=== PATIENT | male | born 1995 | race Caucasian/White ===

== ENCOUNTER 2023-07-12 14:15 | Outpatient (RCR) | payer MEDICARE, SELFPAY ==
[2023-06-21 13:08] VITALS: BP 179/111; PULSE 102; RESP 20; TEMP 36.5; BMI 62.3
--- NOTE | 2023-06-22 13:38 | PCM.WC.HP ---
History of Present Illness Date of Service: 06/21/23 Chief Complaint: LLE skin breakdown/cellulitis History of Wound: Patient is a 27 year old male who does have a diagnosis of cognitive delay, his mother and sister have accompanied him to his appointment today. He is referred by PCP. In March, patient had an abrasion on his LLE which became infected. He was started on antibiotics and it had begun to improve for some time. Then he had a bug bite in the same area and the infection all of sudden started to worsen. On 05/30/23 he presented to the ER with erythema extending from distal L kingsley to mid thigh and he was admitted for 3 days for IV antibiotics. He was discharged with 2 weeks of PO amoxicillin and doxycycline. He was seen by his PCP for persistent ulcerated area on the L kingsley. He recently finished his PO antibiotics. He and his mother report the redness has significantly improved though there is some persistent redness at the distal medial thigh and mid-kingsley. There is a small, very superficial ulceration about mid-kingsley. He reports the pain is resolved and the swelling seems to be slowly improving. Prior to this, he had not been wearing any compression. He has never had anything like this happen before. He was recently diagnosed with hypertension and started on lisinopril. He uses chewing tobacco, does not smoke. No history of diabetes. His medical history is otherwise unremarkable. [facility] Medical History (Updated 06/22/23 @ 16:42 by CHARLENE Rodriguez) Anxiety Bilateral leg edema Bilateral lower leg cellulitis Essential (primary) hypertension GERD (gastroesophageal reflux disease) Irritable Mild mental slowing Mild persistent asthma in adult without complication Obesity, morbid (more than 100 lbs over ideal weight or BMI > 40) Tachycardia with hypertension Home Medications albuterol sulfate 90 mcg/actuation aerosol inhaler (Ventolin HFA) 1 inh inhalation Q4H 06/15/23 [History Last Taken Unknown] cetirizine 10 mg tablet 10 mg PO HS 06/15/23 [History Last Taken Unknown] famotidine 20 mg tablet 20 mg PO DAILY 06/15/23 [History Last Taken Unknown] furosemide 40 mg tablet 40 mg PO DAILY 06/15/23 [History Last Taken Unknown] lisinopril 30 mg tablet 30 mg PO DAILY 06/15/23 [History Last Taken Unknown] metoprolol succinate 25 mg tablet,extended release 24 hr 25 mg PO DAILY 06/15/23 [History Last Taken Unknown] Allergy/AdvReac Type Severity Reaction Status Date / Time Animal Dander Allergy Intermediate Unknown Uncoded 06/15/23 08:25 Mold Spores Allergy Intermediate Unknown Uncoded 06/15/23 08:25 Family History (Updated 06/15/23 @ 08:38 by Crystal Eagle RN) Mother Asthma Grandfather Cancer Brother Diabetes Grandmother Diabetes Heart disease Hypertension Father Kidney disease Surgical History (Updated 06/15/23 @ 08:35 by Crystal Eagle RN) Hx of tonsillectomy Social History (Updated 06/15/23 @ 08:30 by Crystal Eagle RN) Smoking Status: Never smoker Smokeless tobacco user: chewing tobacco alcohol intake: never substance use type: does not use caffeine: Yes Type: tea Vital Signs Vital Signs Vital Signs: Weight Weight: 422 lb Body Mass Index (BMI) 62.3 Physical Exam Const alert, oriented x3 and no apparent distress General Appearance: cooperative HEENT normocephalic, head/scalp atraumatic, hearing grossly normal bilaterally, external ears normal and external nose normal Eyes EOMs intact bilaterally General Eye: normal appearance of both eyes Neck General: normal visual inspection and trachea midline Resp normal respiratory effort, normal air movement, no retractions and no use of accessory muscles Effort and Inspection: able to speak in complete sentences; Negative for labored, grunting or stridor Cardio regular rate and regular rhythm Extremity Extremity Narrative: Left lower extremity edema 1-2+. Skin Wounds: wounds noted Wound Narrative: There is some remaining erythema at the medial distal thigh and at mid-kingsley on the LLE. There is no associated warmth, tenderness, drainage, fluctuance, induration. There is a small, superficial ulcerated area within the erythematous area on the L mid-kingsley. There is no significant drainge from this area. Neuro oriented x3, CN's II-XII intact bilaterally, moves all extremities, no focal motor deficits and no sensory deficits noted Psych Appearance: grossly normal Attitude: calm and engaged Activity / Motor Behavior: appropriate eye contact Speech: normal speech Mood & Affect: euthymic mood Debridement Note Debridement Note No debridement was completed: No debridement was completed today Post-Debridement Measurements and Additional Note: Post-Debridement Measurements/Treatment RIVERA - Nurse 1 - General Ulcer Assessment Start: 06/21/23 13:08 Freq: Status: Active Protocol: JOSHEXT Activity Type Activity Date Activity User E-sign Co-sign Detail Recorded Client Recorded Date Recorded By Document 06/21/23 13:08 [id number] 06/21/23 13:20 06/21/23 13:08 - Today's Visit Information Type of service Initial Visit Arrival Mode Ambulatory Accompanied by Mother and sister Patient Identification Verified (Name & Yes ) Height and Weight Height 5 ft 9 in Weight 422 lb Weight in Pounds 422.0 lbs Body Mass Index (BMI) 62.3 BMI Classification Obese BSA - Bita 2.84 Vital Signs Temperature (97.8 F-99.1 F) 97.7 F L Temperature Source Temporal Pulse Rate (60-100) 102 H Pulse Location Monitor Respiratory Rate (12-18) 20 H Respiratory rate source Observation Oxygen Delivery Method Room Air Blood Pressure (90/60-120/80) 179/111 H Blood Pressure Mean 133 Source Monitor Position Sitting Blood Pressure Location Left Arm History Since Last Visit- (Skip if this is Patient's initial visit) Left Footwear Regular Shoe Right Footwear Regular Shoe Pain Scale: 0-10 Numeric Is Patient Pain Free? Yes Lower Extremity Assessment/ Foot Assessment/ Toe Nail Assessment Right -Popliteal Doppler Multiphasic -Posterior Tibial Doppler Multiphasic -Dorsalis Pedis Doppler Multiphasic -Extremity Color Normal -Hair Growth on Legs Yes -Hair Growth on Toes Yes -Temperature of Extremity Warm -Capillary Refill Less than 3 Seconds Left -Popliteal Doppler Monophasic -Posterior Tibial Doppler Monophasic -Dorsalis Pedis Doppler Monophasic -Extremity Color Red,Normal -Hair Growth on Legs Yes -Hair Growth on Toes Yes -Temperature of Extremity Warm -Capillary Refill Less than 3 Seconds -Foot Assessment Not Assessed Communication Assessment Preferred language Bahamian Able to Read Yes Able to Write Yes Communication Tools None Caregiver Communication Skills No Impairment Impairment Right Hearing Abillity Normal Left Hearing Abillity Normal Visual Assistive Devices None Teaching Assessment Preferences Verbal,Written, Demonstration Barriers to Learning None Readiness To Learn Excellent Willingness to Engage in Self Management High Activies Readiness to Engage in Self Management High Activities Anxiety Level Calm Cooperation Cooperative Perception Coherent Interest in Health Problem Asks Questions Education Importance Acknowledges Need Does Patient Smoke tobacco or other Yes substances Is Patient Diabetic No Functional Assessment Recent Decline in Ability to Perform Denies Any Declines Culture/Islam/Maintenance Journeyman Cultural/Islam Needs that may affect No Treatment Plan Would you allow our hospital national park tour guide to No meet you for the purpose of spiritual/ emotional support? Teaching: Wound Center Welcome to the Wound Care Center Bah[place]ian WC - Nurse 1 - General Ulcer Measurement Start: 06/21/23 13:08 Freq: Status: Active Protocol: Activity Type Activity Date Activity User E-sign Co-sign Detail Recorded Client Recorded Date Recorded By Document 06/21/23 13:08 [id number] 06/21/23 13:20 KW 06/21/23 13:08 Wound Center Nurse 1 #1: LLE/ KINGSLEY -Current Size (cm) - Length 0.1 -Current Size (cm) - Width 0.1 -Current Size (cm) - Depth 0.1 -Total Square Cm 0.01 -Texture (Francesca-wound Skin Appearance) Assessed -Moisture (Francesca-wound Skin Appearance) Assessed -Color (Francesca-wound Skin Appearance) Assessed -Temperature (Francesca-wound Skin No Abnormality Appearance) (Pt Warm) -Ulcer Cleansing Soap and Water -Foul Odor after Cleansing No -Anesthetic Used 5% Lidocaine Gel Right Calf (cm) 54.7 Right Ankle (cm) 30.8 Left Calf (cm) 62.6 Left Ankle (cm) 37 WC - Nurse 2 - General Ulcer CM Notes Start: 06/21/23 13:08 Freq: Status: Active Protocol: Activity Type Activity Date Activity User E-sign Co-sign Detail Recorded Client Recorded Date Recorded By Document 06/21/23 13:59 PL [id number] 06/21/23 14:05 PL 06/21/23 13:59 Wound Center Nurse 2 #1: LLE/ KINGSLEY -Time 13:30 -Correct Patient Yes -Correct Side, Site, Position Yes -Correct Procedure Yes -Procedure Performed No -Post Debridement (cm) - Length 1.0 -Post Debridement (cm) - Width 0.5 -Post Debridement (cm) - Depth 0.1 -Total Square (Post) (cm) 0.50 -Tunneling No -Undermining/Tunneling No -Circular Undermining No -Ulcer Cleansing Rinsed/ Irrigated with Saline -Foul Odor after Cleansing No -Bioengineered Tissue No -Bleeding Controlled with Pressure -Treatment Response Procedure Tolerated Well Pain Scale: 0-10 Numeric Is Patient Pain Free? Yes WC - Nurse 3 - General Ulcer D/C NN Start: 06/21/23 13:08 Freq: Status: Active Protocol: Activity Type Activity Date Activity User E-sign Co-sign Detail Recorded Client Recorded Date Recorded By Document 06/21/23 13:49 [facility] [id number] 06/21/23 13:50 [facility] 06/21/23 13:49 Wound Care Center Nurse 3 #1: LLE/ KINGSLEY -Ulcer Cleansing Rinsed/ Irrigated with Saline -Foul Odor after Cleansing No -Other Dressing UNNA BOOT PER KW TYPE COPY EXAMINER Left -Multi-Layered Wrap Application Unna Boot - Left ($) Treatment Response Procedure Tolerated Well Pain Scale: 0-10 Numeric Is Patient Pain Free? Yes WC - Visit Discharge Discharge Condition Stable Ambulatory Status Ambulatory Transportation Private Auto Accompanied by MOM AND SISTER Charges/Coding Visit Charges Office Visits / Consults: 04131 OV L3 New Assessment/Plan Assessment/Plan (1) Bilateral leg edema: CODE(S): R60.0 - Localized edema (2) Chronic ulcer of left leg, limited to breakdown of skin: CODE(S): L97.921 - Non-pressure chronic ulcer of unspecified part of left lower leg limited to breakdown of skin PLAN: Plan Did use skin marker to trace the areas of erythema. He just finished two weeks of oral antibiotics and is without any other signs/symptoms of infection at this time. He and his family are instructed to contact the wound center or proceed to the ER if the redness spreads or he develops pain/fevers/chills and they acknowledged understanding. Will apply an Unna boot to the L leg for both treatment of the ulceration as well as compression. He was instructed to keep this dressing clean and dry, it will remain in place all week. He was instructed to elevate his legs whenever resting and to avoid prolonged idle sitting or standing. Return to clinic in 1 week.
[2023-07-12 14:58] VITALS: BP 138/84; PULSE 117; RESP 18; BMI 62.3
[2023-07-12 16:49] LABS: Absolute Lymphocyte Count 1.24 X10^3/uL (0.83-4.51); Absolute Neutrophil Count 9.2 X10^3/uL (2.0-7.7); Basophil# 0.02 X10^3/uL; Basophil% 0.2 % (0-1); Eosinophil# 0.04 X10^3/uL; Eosinophils% 0.4 % (0-5); Hematocrit 40.3 % (40-54); Hemoglobin 12.3 g/dL (13.0-16.5); Lymphocyte # 1.24 X10^3/ul (0.83-4.51); Lymphocyte % 10.9 % (19-41); Mean Corp Hgb Conc 30.5 g/dL (32-36); Mean Corpuscular Hgb 27.6 pg (27.0-32.0); Mean Corpuscular Volume 90.4 fL (80-94); Mean Platelet Vol. 12.4 fl (6.2-12.0); Monocyte# 0.81 X10^3/uL; Monocyte% 7.1 % (0-10); NRBC Flagged by Analyzer 0 % (0-5); Neutrophil # 9.17 X10^3/uL (2.7-7.7); Platelet Count 157 K/mm3 (150-450); RBC Distribution Width CV 14.6 % (11.6-14.6); Red Blood Count 4.46 M/mm3 (4.6-6.2); White Blood Count 11.3 K/mm3 (4.4-11.0)
[2023-07-12 17:06] LABS: Anion Gap 5 (5-15); BUN 15 mg/dL (7-18); BUN/Creat Ratio 13.4 RATIO (10-20); Calcium,Total 8.6 mg/dL (8.5-10.1); Chloride 102 mmol/L (98-107); Creatinine, Serum 1.12 mg/dL (0.70-1.30); EST Glomerular Filtration Rate 83 mL/min (>60); Est Glom Filt Rate - Afr Amer 101 mL/min (>60); Estimated Creatinine Clearance 99.07 ml/min; Glucose 112 mg/dL (74-106); Potassium 3.9 mmol/L (3.5-5.1); Sodium Level 136 mmol/L (136-145)
--- NOTE | 2023-07-13 12:17 | PCM.WC.PN ---
History of Present Illness Date of Service: 07/12/23 Chief Complaint: LLE skin breakdown/cellulitis History of Wound: Patient is a 27 year old male who does have a diagnosis of cognitive delay, his mother and sister have accompanied him to his appointment today. He is referred by PCP. In March, patient had an abrasion on his LLE which became infected. He was started on antibiotics and it had begun to improve for some time. Then he had a bug bite in the same area and the infection all of sudden started to worsen. On 05/30/23 he presented to the ER with erythema extending from distal L kingsley to mid thigh and he was admitted for 3 days for IV antibiotics. He was discharged with 2 weeks of PO amoxicillin and doxycycline. He was seen by his PCP for persistent ulcerated area on the L kingsley. He recently finished his PO antibiotics. He and his mother report the redness has significantly improved though there is some persistent redness at the distal medial thigh and mid-kingsley. There is a small, very superficial ulceration about mid-kingsley. He reports the pain is resolved and the swelling seems to be slowly improving. Prior to this, he had not been wearing any compression. He has never had anything like this happen before. He was recently diagnosed with hypertension and started on lisinopril. He uses chewing tobacco, does not smoke. No history of diabetes. His medical history is otherwise unremarkable. Subjective Subjective Patient missed last appointment scheduled 2 weeks ago. He returns today with LLE improved following Unna boot but now with concerns of cellulitis in his RLE. He is accompanied to his visit by his mother who helps to supplement history. He reports that he got bit by a mosquito several days ago and since then has had increasing redness, pain, and swelling in his right lower leg. He denies any N/V, F/C. He does not have any open wounds. Objective Data Objective Data Vital Signs: Vital Signs Temp Pulse Resp BP O2 Del Method 97.7 F L 117 H 18 138/84 H Room Air 06/21/23 13:08 07/12/23 14:58 07/12/23 14:58 07/12/23 14:58 07/12/23 14:58 Oxygen Delivery Method Room Air Weight: 422 lb Body Mass Index (BMI) 62.3 Lab / Micro Data 07/12/23 16:15 07/12/23 16:15 Labs: Laboratory Results - last 24 hr 07/12/23 16:15: WBC 11.3 H, RBC 4.46 L, Hgb 12.3 L, Hct 40.3, MCV 90.4, MCH 27.6, MCHC 30.5 L, RDW Std Deviation 49.0 H, RDW Coeff of Roshan 14.6, Plt Count 157, MPV 12.4 H, Immature Gran % (Auto) 0.400, Neut % (Auto) 81.0 H, Lymph % (Auto) 10.9 L, Heard % (Auto) 7.1, Eos % (Auto) 0.4, Baso % (Auto) 0.2, Absolute Neuts (auto) 9.2 H, Absolute Lymphs (auto) 1.24, Nucleated RBC % 0, Sodium 136, Potassium 3.9, Chloride 102, Carbon Dioxide 29.0, Anion Gap 5, BUN 15, Creatinine 1.12, Estim Creat Clear Calc 99.07, Est GFR (MDRD) Af Amer 101, Est GFR (MDRD) Non-Af 83, BUN/Creatinine Ratio 13.4, Glucose 112 H, Calcium 8.6 Charges/Coding Visit Charges Office Visits / Consults: [id number] OV L3 Est Physical Exam Const alert, oriented x3 and no apparent distress General Appearance: cooperative HEENT normocephalic, head/scalp atraumatic, hearing grossly normal bilaterally, external ears normal and external nose normal Eyes EOMs intact bilaterally General Eye: normal appearance of both eyes Neck General: normal visual inspection and trachea midline Resp normal respiratory effort, normal air movement, no retractions and no use of accessory muscles Effort and Inspection: able to speak in complete sentences; Negative for labored, grunting or stridor Cardio regular rate and regular rhythm Extremity Extremity Narrative: Right lower extremity edema 1-2+ Skin Wounds: wounds noted Wound Narrative: There is some remaining erythema at the medial distal thigh and at mid-kingsley on the LLE but does appear resource teacher and improved from initial visit. There is no associated warmth, tenderness, drainage, fluctuance, induration. There is an area of increased erythema, warmth, and tenderness to palpation on his anterior R kingsley. The redness does not extend onto his foot and there is no streaking proximally up the leg. There is no significant drainage, no focal swelling or fluctuance, and no visible wound. Neuro oriented x3, CN's II-XII intact bilaterally, moves all extremities, no focal motor deficits and no sensory deficits noted Psych Appearance: grossly normal Attitude: calm and engaged Activity / Motor Behavior: appropriate eye contact Speech: normal speech Mood & Affect: euthymic mood Debridement Note Debridement Note No debridement was completed: No debridement was completed today Post-Debridement Measurements and Additional Note: Post-Debridement Measurements/Treatment WC - Nurse 1 - General Ulcer Assessment Start: 06/21/23 13:08 Freq: Status: Active Protocol: HEENA Activity Type Activity Date Activity User E-sign Co-sign Detail Recorded Client Recorded Date Recorded By Document 06/21/23 13:08 KW [id number] 06/21/23 13:20 KW Document 07/12/23 14:58 KW Desktop 07/12/23 15:03 KW 06/21/23 07/12/23 13:08 14:58 - Today's Visit Information Type of service Initial Visit Follow-up Visit (Physician/GREASE PACKER ) Arrival Mode Ambulatory Ambulatory Accompanied by Mother and MOM sister Patient Identification Verified (Name & Yes Yes ) Height and Weight Height 5 ft 9 in Weight 422 lb Weight in Pounds 422.0 lbs Body Mass Index (BMI) 62.3 62.3 BMI Classification Obese Obese BSA - Bita 2.84 Vital Signs Temperature (97.8 F-99.1 F) 97.7 F L Temperature Source Temporal Pulse Rate (60-100) 102 H 117 H Pulse Location Monitor Monitor Respiratory Rate (12-18) 20 H 18 Respiratory rate source Observation Observation Oxygen Delivery Method Room Air Room Air Blood Pressure (90/60-120/80) 179/111 H 138/84 H Blood Pressure Mean (mm Hg) 133 102 Source Monitor Monitor Position Sitting Semi-Fowlers Blood Pressure Location Left Arm Left Arm History Since Last Visit- (Skip if this is Patient's initial visit) Have you changed medications since your Yes last visit? Any new allergies or adverse reactions No Had a fall/change in ADL's that may No increase risk of falls Signs or symptoms of abuse and/or No neglect since last visit Have you been in the hospital since your No last visit? Has dressing in place as prescribed No Has compression in place as prescribed No Has offloadiing in place as prescribed No Experienced any changes in pain level or No management Left Footwear Regular Shoe Regular Shoe Right Footwear Regular Shoe Regular Shoe Pain Scale: 0-10 Numeric Is Patient Pain Free? Yes Yes Lower Extremity Assessment/ Foot Assessment/ Toe Nail Assessment Right -Popliteal Doppler Multiphasic -Posterior Tibial Doppler Multiphasic -Dorsalis Pedis Doppler Multiphasic -Extremity Color Normal -Hair Growth on Legs Yes -Hair Growth on Toes Yes -Temperature of Extremity Warm -Capillary Refill Less than 3 Seconds Left -Popliteal Doppler Monophasic -Posterior Tibial Doppler Monophasic -Dorsalis Pedis Doppler Monophasic -Extremity Color Red,Normal -Hair Growth on Legs Yes -Hair Growth on Toes Yes -Temperature of Extremity Warm -Capillary Refill Less than 3 Seconds -Foot Assessment Not Assessed Communication Assessment Preferred language Armenian Able to Read Yes Able to Write Yes Communication Tools None Caregiver Communication Skills No Impairment Impairment Right Hearing Abillity Normal Left Hearing Abillity Normal Visual Assistive Devices None Teaching Assessment Preferences Verbal,Written, Demonstration Barriers to Learning None Readiness To Learn Excellent Willingness to Engage in Self Management High Activies Readiness to Engage in Self Management High Activities Anxiety Level Calm Cooperation Cooperative Perception Coherent Interest in Health Problem Asks Questions Education Importance Acknowledges Need Does Patient Smoke tobacco or other Yes substances Is Patient Diabetic No Functional Assessment Recent Decline in Ability to Perform Denies Any Declines Culture/Hinduism/Manufacturing Electrician Cultural/Hinduism Needs that may affect No Treatment Plan Would you allow our hospital unattended ground sensor specialist to No meet you for the purpose of spiritual/ emotional support? Teaching: Wound Center Welcome to the Wound Care Center English ST[place] - Nurse 1 - General Ulcer Measurement Start: 06/21/23 13:08 Freq: Status: Active Protocol: Activity Type Activity Date Activity User E-sign Co-sign Detail Recorded Client Recorded Date Recorded By Document 06/21/23 13:08 KW [id number] 06/21/23 13:20 KW Document 07/12/23 14:58 KW Desktop 07/12/23 15:03 KW 06/21/23 07/12/23 13:08 14:58 Wound Center Nurse 1 #2 RLE -Current Size (cm) - Length 0.1 -Current Size (cm) - Width 0.1 -Current Size (cm) - Depth 0.1 -Total Square Cm 0.01 -Texture (Francesca-wound Skin Appearance) Localized Edema -Color (Francesca-wound Skin Appearance) Erythema -Ulcer Cleansing Soap and Water #1: LLE/ KINGSLEY -Current Size (cm) - Length 0.1 0.1 -Current Size (cm) - Width 0.1 0.1 -Current Size (cm) - Depth 0.1 0.1 -Total Square Cm 0.01 0.01 -Texture (Francesca-wound Skin Appearance) Assessed Localized Edema -Moisture (Francesca-wound Skin Appearance) Assessed -Color (Francesca-wound Skin Appearance) Assessed Erythema -Temperature (Francesca-wound Skin No Abnormality Appearance) (Pt Warm) -Ulcer Cleansing Soap and Water Soap and Water -Foul Odor after Cleansing No -Anesthetic Used 5% Lidocaine Gel Right Calf (cm) 54.7 56.5 Right Ankle (cm) 30.8 32.5 Left Calf (cm) 62.6 57.5 Left Ankle (cm) 37 35 WC - Nurse 2 - General Ulcer CM Notes Start: 06/21/23 13:08 Freq: Status: Active Protocol: Activity Type Activity Date Activity User E-sign Co-sign Detail Recorded Client Recorded Date Recorded By Document 06/21/23 13:59 [id number] 06/21/23 14:05 Document 07/12/23 16:39 [id number] 07/12/23 16:40 06/21/23 07/12/23 13:59 16:39 Wound Center Nurse 2 #2 RLE -Time 15:30 -Correct Patient Yes -Correct Side, Site, Position Yes -Correct Procedure Yes -Procedure Performed No #1: LLE/ KINGSLEY -Time 13:30 -Correct Patient Yes -Correct Side, Site, Position Yes -Correct Procedure Yes -Procedure Performed No -Post Debridement (cm) - Length 1.0 -Post Debridement (cm) - Width 0.5 -Post Debridement (cm) - Depth 0.1 -Total Square (Post) (cm) 0.50 -Tunneling No -Undermining/Tunneling No -Circular Undermining No -Ulcer Cleansing Rinsed/ Irrigated with Saline -Foul Odor after Cleansing No -Bioengineered Tissue No -Bleeding Controlled with Pressure -Treatment Response Procedure Tolerated Well Pain Scale: 0-10 Numeric Is Patient Pain Free? Yes Yes WC - Nurse 3 - General Ulcer D/C NN Start: 06/21/23 13:08 Freq: Status: Active Protocol: Activity Type Activity Date Activity User E-sign Co-sign Detail Recorded Client Recorded Date Recorded By Document 06/21/23 13:49 [facility] [id number] 06/21/23 13:50 [facility] Document 07/12/23 15:45 DL Desktop 07/12/23 15:45 DL 06/21/23 07/12/23 13:49 15:45 Wound Care Center Nurse 3 #1: LLE/ KINGSLEY -Ulcer Cleansing Rinsed/ Irrigated with Saline -Foul Odor after Cleansing No -Other Dressing UNNA BOOT PER KW LEGAL PARAPROFESSIONAL renetta -Tubular Bandage Single Layer -Size of Tubigrip Used Size F -Size F ($) 1 Left -Multi-Layered Wrap Application Unna Boot - Left ($) Treatment Response Procedure Procedure Tolerated Well Tolerated Well Pain Scale: 0-10 Numeric Is Patient Pain Free? Yes Yes WC - Visit Discharge Discharge Condition Stable Stable Ambulatory Status Ambulatory Ambulatory Transportation Private Auto Private Auto Accompanied by MOM AND SISTER Assessment/Plan Assessment/Plan (1) Bilateral leg edema: CODE(S): R60.0 - Localized edema (2) Cellulitis of right leg: CODE(S): L03.115 - Cellulitis of right lower limb PLAN: Plan Does appear to have RLE cellulitis. Will prescribe the antibiotic regimen he was on previously for his LLE cellulitis: Amoxicillin 875mg PO BID x 7 days and Doxycycline 100mg PO BID x 14 days. He is also advised to take a daily probiotic. Did obtain a BMP and CBC. His white count was very slightly elevated, otherwise these labs were essentially normal. Will also apply Tubigrips to the lower legs to help manage edema. He is instructed to wear the tubigrips during the day, as tolerated, but to remove at night before bed. He is instructed to cleanse his legs daily with gentle antibacterial soap and water, pat to dry. He was instructed to proceed to the ER should he develop nausea, vomiting, fevers, chills, increasing/spreading redness. Return to clinic in 1 week or sooner as needed.
== END 2023-07-14 23:59 | disposition home or self-care (01) ==
LOC: WC 14:15
PROVIDERS: PCP Nurse Practitioner Family; Referring Provider Nurse Practitioner Family; Visit Provider Physician Assistant
DX: L97.921 Non-pressure chronic ulcer of unspecified part of left lower leg limited to breakdown of skin (principal); M79.661 Pain in right lower leg; I10 Essential (primary) hypertension; R60.0 Localized edema; L03.115 Cellulitis of right lower limb
CPT/HCPCS: 29580; 36415; 80048; 85025; 99213; G0463

== ENCOUNTER 2025-06-12 09:00 | Outpatient (RCR) | payer MEDICARE, SELFPAY ==
[2025-06-09 13:19] VITALS: BP 140/91; PULSE 116; RESP 15; TEMP 35.7; BMI 63.5
--- NOTE | 2025-06-10 13:43 | WC ---
PHOTO-LLE 06/09/25
--- NOTE | 2025-06-11 14:50 | PCM.WC.HP ---
History of Present Illness Date of Service: 06/09/25 Chief Complaint: Left lower extremity venous stasis ulceration with venous stasis dermatitis History of Wound: This is a 29-year-old morbidly obese male who presented with a left lower extremity venous stasis ulceration and venous stasis dermatitis. The patient has previously been treated at the [facility] wound [facility] for similar symptoms and manifestations approximately 2 years ago. The patient is mildly cognitively impaired. The patient's BMI is 63.5. He has been treated for recurrent episodes of cellulitis in his left lower extremity, and has recently received 2 courses of oral cephalexin. Bactroban ointment has been used topically. Exudative drainage has been present until recently. The patient is currently on Lasix, prescribed by his primary care physician. The patient suffers from chronic swelling and edema in his lower extremities bilaterally. He claims to sleep on a flat mattress at night. However, he is not very active, spending large portions of each day sitting in idle fashion. He lives with his parents. Due to dietary modifications, the patient has recently lost 70 pounds. The patient suffers from hypertension, gastroesophageal reflux disease, and asthma. He does not smoke tobacco products, but he does chew. The patient is not diabetic. [facility] Medical History Venous stasis ulcer Hyperpigmentation Lipodermatosclerosis of left lower extremity Venous stasis ulcer of ankle with fat layer exposed without varicose veins Venous stasis dermatitis of left lower extremity Localized swelling of both lower legs Morbid obesity with BMI of 60.0-69.9, adult Cellulitis of right leg Chronic ulcer of left leg, limited to breakdown of skin Irritable Obesity, morbid (more than 100 lbs over ideal weight or BMI > 40) Anxiety Mild mental slowing Essential (primary) hypertension Mild persistent asthma in adult without complication GERD (gastroesophageal reflux disease) Bilateral lower leg cellulitis Tachycardia with hypertension Bilateral leg edema Home Medications Medication Instructions Recorded Last Taken Type cetirizine 10 mg tablet 10 mg PO HS 06/15/23 Unknown History furosemide 40 mg tablet 40 mg PO DAILY 06/15/23 Unknown History lisinopril 30 mg tablet 30 mg PO DAILY 06/15/23 Unknown History albuterol sulfate 90 mcg/actuation 1 inh inhalation Q4-6H PRN 01/18/24 Unknown History aerosol inhaler (Ventolin HFA) shortness of breath or wheezing metoprolol succinate 25 mg 50 mg PO DAILY 01/18/24 Unknown History tablet,extended release 24 hr Allergy/AdvReac Type Severity Reaction Status Date / Time Animal Dander Allergy Intermediate Unknown Uncoded 01/18/24 12:08 Mold Spores Allergy Intermediate Unknown Uncoded 01/18/24 12:08 Family History Mother Asthma Grandfather Cancer Brother Diabetes Grandmother Diabetes Heart disease Hypertension Father Kidney disease Surgical History Hx of tonsillectomy Social History Smoking Status: Never smoker Smokeless tobacco user: chewing tobacco alcohol intake: never substance use type: does not use caffeine: Yes Type: tea Vital Signs Vital Signs Vital Signs: Weight Weight: 430 lb Body Mass Index (BMI) 63.5 Physical Exam Const alert, no apparent distress and well nourished Constitutional Narrative: The patient is morbidly obese. His BMI is 63.5. The patient is interactive, though appears somewhat cognitively impaired. General Appearance: cooperative, comfortable and well developed Orientation / Consciousness: awake Exam Limitations: no limitations HEENT normocephalic and head/scalp atraumatic Head and Scalp: normal to inspection, normocephalic and atraumatic Face and Sinus: normal facial exam Nose: external nose normal External Ear: external ears normal Eyes EOMs intact bilaterally General Eye: normal appearance of both eyes Neck full ROM General: normal visual inspection Resp normal respiratory effort, normal air movement, no retractions and no use of accessory muscles Effort and Inspection: able to speak in complete sentences Extremity no calf tenderness General Extremity: Negative for clubbing or cyanosis Skin Wound Narrative: Severe swelling and edema are noted in the patient's lower extremities bilaterally. A venous ulceration is noted on the left lateral calf, surrounded by an area of scaly, venous stasis dermatitis. Areas of sloughing epidermis are noted surrounding the venous stasis ulceration. Hyperpigmentation is also noted in the left gaiter area, as well as lipodermatosclerosis. No large varicosities are noted. No drainage is noted. There is no sign of infection or cellulitis. The venous stasis ulceration is partial-thickness, and margins are well beveled. Dimensions are documented elsewhere. Neuro oriented x3, CN's II-XII intact bilaterally, moves all extremities and no focal motor deficits Sensorium / Orientation: awake Psych Appearance: grossly normal and appropriate Attitude: calm Activity / Motor Behavior: appropriate eye contact Speech: normal speech Mood & Affect: euthymic mood Attention / Concentration: attention grossly intact Debridement Note Debridement Note Wound debrided: Venous stasis ulceration of the left lateral calf Laterality: Left Type of Debridement: Selective debridement Anesthesia Used: 5% Lidocaine Gel Depth: Down to and including healthy tissue Percentage of wound debrided: 100 Instrument Used: 5mm curette Tissue Removed: Devitalized tissue and sloughing epidermis Severity: Limited To Skin Breakdown Amount of bleeding with debridement: Mild Bleeding Controlled with: Compression and gauze Patient tolerated procedure: Patient tolerated procedure well Post-Debridement Measurements and Additional Note: Post-Debridement Measurements/Treatment - Nurse 1 - General Ulcer Assessment Start: 06/09/25 13:19 Freq: Status: Active Protocol: HEENA Activity Type Activity Date Activity User E-sign Co-sign Detail Recorded Client Recorded Date Recorded By Document 06/09/25 13:19 ML [id number] 06/09/25 13:21 ML Edit Result 06/09/25 13:19 ML (1) [id number] 06/09/25 13:33 KW (1) Height => 5 ft 9 in Weight => 430 lb Weight in Pounds => 430.0 lbs Body Mass Index (BMI) => 63.5 BMI Classification => Obese Left Footwear => Regular Shoe Right Footwear => Regular Shoe 06/09/25 13:19 - Today's Visit Information Type of service Initial Visit Arrival Mode Ambulatory Transfer Assistance None Patient Identification Verified (Name & Yes ) Patient Requires Transmission-Based No Precautions Height and Weight Height 5 ft 9 in Weight 430 lb Weight in Pounds 430.0 lbs Body Mass Index (BMI) 63.5 BMI Classification Obese Vital Signs Temperature (97.8 F-99.1 F) 96.3 F L Temperature Source Temporal Pulse Rate (60-100) 116 H Pulse Location Monitor Respiratory Rate (12-18) 15 Respiratory rate source Observation Blood Pressure (90/60-120/80) 140/91 H Blood Pressure Mean 107 Source Monitor Position Sitting Blood Pressure Location Right Forearm History Since Last Visit- (Skip if this is Patient's initial visit) Left Footwear Regular Shoe Right Footwear Regular Shoe Pain Scale: 0-10 Numeric Is Patient Pain Free? Yes WC - Nurse 1 - General Ulcer Measurement Start: 06/09/25 13:19 Freq: Status: Active Protocol: Activity Type Activity Date Activity User E-sign Co-sign Detail Recorded Client Recorded Date Recorded By Document 06/09/25 13:19 ML [id number] 06/09/25 13:21 ML Edit Result 06/09/25 13:19 ML (1) [id number] 06/09/25 13:23 ML (1) Lower Limb Edema Present => Yes 06/09/25 13:19 Wound Center Nurse 1 Lower Limb Edema Present Yes Right Calf (cm) 58.5 Right Ankle (cm) 35 Left Calf (cm) 61 Left Ankle (cm) 38 WC - Nurse 2 - General Ulcer CM Notes Start: 06/09/25 13:19 Freq: Status: Active Protocol: Activity Type Activity Date Activity User E-sign Co-sign Detail Recorded Client Recorded Date Recorded By Document 06/09/25 13:50 DS [id number] 06/09/25 13:56 DS 06/09/25 13:50 Wound Center Nurse 2 #1: LLE/ AMOS CLUSTER -Time 13:50 -Correct Patient Yes -Correct Side, Site, Position Yes -Correct Procedure Yes -Procedure Performed Yes -Type of Procedure Debridement -Clinical Debridement Epidermis / Dermis -Tissue Removed Epidermis -Post Debridement (cm) - Length 17.5 -Post Debridement (cm) - Width 8.0 -Post Debridement (cm) - Depth 0.1 -Total Square (Post) (cm) 140.00 -Area of Debridement (cm) - Length 17.5 -Area of Debridement (cm) - Width 8.0 -Total Square (Area) (cm) 140.00 -Tunneling No -Undermining/Tunneling No -Circular Undermining No -Wound/Ulcer Outcome Not Healed -Ulcer Cleansing GAUZE -Foul Odor after Cleansing No -Bioengineered Tissue No -Bleeding Controlled with Pressure -Debridement - Open, 1st 20sq cm Yes -Debridement, Open, ea addt'l 20sq cm 6 or part thereof Pain Scale: 0-10 Numeric Is Patient Pain Free? Yes WC - Nurse 3 - General Ulcer D/C NN Start: 06/09/25 13:19 Freq: Status: Active Protocol: Activity Type Activity Date Activity User E-sign Co-sign Detail Recorded Client Recorded Date Recorded By Document 06/09/25 14:06 PRISCILLA [id number] 06/09/25 14:07 PRISCILLA 06/09/25 14:06 Wound Care Center Nurse 3 RLE -Tubular Bandage Double Layer -Size of Tubigrip Used Size F -Size F ($) 2 LLE -Multi-Layered Wrap Application Unna Boot - Left -Unna- Left (Qty applied) 1 Pain Scale: 0-10 Numeric Is Patient Pain Free? Yes WC - Visit Discharge Discharge Condition Stable Ambulatory Status Ambulatory Transportation Private Auto Medication Reconcilliation completed & No provided to patient/care provider Clinical Summary of Care Provided Yes Charges/Coding Wound Center CF Procedures [id number]: 12810 RMVL DEVITAL TIS ADDL 20CM/< (72267 x 1; 88397 x 6) Multi Select Codes Visit Charges Office Visit/Consults: 00986 OV L4 New 45 min Wound Center CF Procedures [id number]: 26380 RMVL DEVITAL TIS ADDL 20CM/< (53327 x 1; 67473 x 6) Assessment/Plan Assessment/Plan (1) Venous stasis ulcer: CODE(S): I83.009 - Varicose veins of unspecified lower extremity with ulcer of unspecified site; L97.909 - Non-pressure chronic ulcer of unspecified part of unspecified lower leg with unspecified severity QUALIFIERS: Venous stasis ulcer site: calf Varicose vein presence: without varicose veins Laterality: left Non-pressure ulcer stage: with fat layer exposed Qualified Code(s): I87.2 - Venous insufficiency (chronic) (peripheral); L97.222 - Non-pressure chronic ulcer of left calf with fat layer exposed (2) Venous stasis dermatitis of left lower extremity: CODE(S): I87.2 - Venous insufficiency (chronic) (peripheral) (3) Bilateral leg edema: CODE(S): R60.0 - Localized edema (4) Localized swelling of both lower legs: CODE(S): R22.43 - Localized swelling, mass and lump, lower limb, bilateral (5) Lipodermatosclerosis of left lower extremity: CODE(S): M79.3 - Panniculitis, unspecified (6) Hyperpigmentation: CODE(S): L81.9 - Disorder of pigmentation, unspecified (7) Morbid obesity with BMI of 60.0-69.9, adult: CODE(S): E66.01 - Morbid (severe) obesity due to excess calories; Z68.44 - Body mass index [BMI] 60.0-69.9, adult (8) Mild mental slowing: CODE(S): F70 - Mild intellectual disabilities (9) Essential (primary) hypertension: CODE(S): I10 - Essential (primary) hypertension (10) GERD (gastroesophageal reflux disease): CODE(S): K21.9 - Gastro-esophageal reflux disease without esophagitis (11) Mild persistent asthma in adult without complication: CODE(S): J45.30 - Mild persistent asthma, uncomplicated (12) Hx of tonsillectomy: CODE(S): Z90.89 - Acquired absence of other organs PLAN: Plan This is a morbidly obese 29-year-old male with a long history of bilateral lower extremity swelling and edema. He also has had recurrent episodes of venous stasis dermatitis and venous ulcerations in his left lower extremity. He presents with recurrent venous stasis ulceration on his left lateral calf. He has been a previous patient at the [facility] approximately 2 years ago for similar symptoms and manifestations. His BMI is 63.5. He has made recent efforts to lose weight, and has lost approximately 70 by dietary means. To assist the patient and his family in further weight loss efforts, a consultation is to be sought with the dietary service. Patient has been encouraged to lose additional weight. With respect to his presenting condition, conservative measures are to be implemented relative to the chronic swelling and edema in his lower extremities. A lengthy discussion has been undertaken regarding leg elevation. Leg elevation is to be to heart level, is much as possible. The patient has been encouraged to continue sleeping on a flat surface at night. His legs are to be elevated to heart level, or higher, during daytime hours as well. Elevation has been encouraged as much as possible. Prolonged idle sitting has been discouraged. Activity has been encouraged. We are to implement compression to the left lower extremity by means of an Unna compression wrap, which will be changed twice weekly. A double layer Tubigrip to be implemented to the right lower extremity which will be donned on a daily basis. Relative to long-term management, the patient will be best served by efforts to lose weight, which have been initiated. He will also benefit from compression to the lower extremities but either graduated compression stockings or CircAid, Velcro compression garments. Patient is to return in 1 week for reassessment. Total time: 48 minutes
[2025-06-12 09:25] VITALS: BP 150/95; PULSE 111; RESP 18; TEMP 36.9; BMI 63.5
== END 2025-06-14 23:59 | disposition home or self-care (01) ==
LOC: WC 09:00
PROVIDERS: PCP Nurse Practitioner Family; Referring Provider Nurse Practitioner Family; Visit Provider Surgery
DX: I83.022 Varicose veins of left lower extremity with ulcer of calf (principal); L97.222 Non-pressure chronic ulcer of left calf with fat layer exposed; E66.01 Morbid (severe) obesity due to excess calories; Z68.44 Body mass index [BMI] 60.0-69.9, adult; F70 Mild intellectual disabilities; I10 Essential (primary) hypertension; I87.2 Venous insufficiency (chronic) (peripheral); Z79.899 Other long term (current) drug therapy; J45.30 Mild persistent asthma, uncomplicated; K21.9 Gastro-esophageal reflux disease without esophagitis; Z90.89 Acquired absence of other organs; M79.3 Panniculitis, unspecified; R22.43 Localized swelling, mass and lump, lower limb, bilateral; F17.220 Nicotine dependence, chewing tobacco, uncomplicated
CPT/HCPCS: 29580; 97597; 97598; 99213; G0463

== ENCOUNTER 2025-07-07 12:30 | Outpatient (RCR) | payer MEDICARE, SELFPAY ==
[2025-06-16 13:04] VITALS: BP 157/100; PULSE 96; RESP 16; TEMP 36.6
--- NOTE | 2025-06-18 09:55 | WC ---
PHOTO- LLE CLUSTER 06/16/25
[2025-06-19 09:34] VITALS: BP 156/102; PULSE 108; RESP 18; TEMP 36.4
--- NOTE | 2025-06-19 11:55 | PCM.WC.HP ---
History of Present Illness Date of Service: 06/16/25 Chief Complaint: Left lower extremity venous stasis ulceration with venous stasis dermatitis; Lymphedema History of Wound: This is a 29-year-old morbidly obese male who presented with a left lower extremity venous stasis ulceration and venous stasis dermatitis. The patient has previously been treated at the [facility] wound healing center for similar symptoms and manifestations approximately 2 years ago. The patient is mildly cognitively impaired. The patient's BMI is 63.5. He has been treated for recurrent episodes of cellulitis in his left lower extremity, and has recently received 2 courses of oral cephalexin. Bactroban ointment has been used topically. Exudative drainage has been present until recently. The patient is currently on Lasix, prescribed by his primary care physician. The patient suffers from chronic swelling, edema, and lymphedema in his lower extremities bilaterally. He claims to sleep on a flat mattress at night. However, he is not very active, spending large portions of each day sitting in idle fashion. He lives with his parents. Due to dietary modifications, the patient has recently lost 70 pounds. The patient suffers from hypertension, gastroesophageal reflux disease, and asthma. He does not smoke tobacco products, but he does chew. The patient is not diabetic. [facility] Medical History Lymphedema Venous stasis ulcer Hyperpigmentation Lipodermatosclerosis of left lower extremity Venous stasis ulcer of ankle with fat layer exposed without varicose veins Venous stasis dermatitis of left lower extremity Localized swelling of both lower legs Morbid obesity with BMI of 60.0-69.9, adult Cellulitis of right leg Chronic ulcer of left leg, limited to breakdown of skin Irritable Obesity, morbid (more than 100 lbs over ideal weight or BMI > 40) Anxiety Mild mental slowing Essential (primary) hypertension Mild persistent asthma in adult without complication GERD (gastroesophageal reflux disease) Bilateral lower leg cellulitis Tachycardia with hypertension Bilateral leg edema Home Medications ?Medication ?Instructions ?Recorded ?Last Taken ?Type cetirizine 10 mg tablet 10 mg PO HS 06/15/23 Unknown History furosemide 40 mg tablet 40 mg PO DAILY 06/15/23 Unknown History lisinopril 30 mg tablet 30 mg PO DAILY 06/15/23 Unknown History albuterol sulfate 90 mcg/actuation 1 inh inhalation Q4-6H PRN 04/05/24 Unknown History aerosol inhaler (Ventolin HFA) shortness of breath or wheezing metoprolol succinate 25 mg 50 mg PO DAILY 01/18/24 Unknown History tablet,extended release 24 hr Allergy/AdvReac Type Severity Reaction Status Date / Time Animal Dander Allergy Intermediate Unknown Uncoded 01/18/24 12:08 Mold Spores Allergy Intermediate Unknown Uncoded 01/18/24 12:08 Family History Mother Asthma Grandfather Cancer Brother Diabetes Grandmother Diabetes Heart disease Hypertension Father Kidney disease Surgical History Hx of tonsillectomy Social History Smoking Status: Never smoker Smokeless tobacco user: chewing tobacco alcohol intake: never substance use type: does not use caffeine: Yes Type: tea Vital Signs Vital Signs Vital Signs: 06/19/25 09:34 Temperature 97.5 F L Temperature Source Temporal Pulse Rate 108 H Respiratory Rate 18 Blood Pressure 156/102 H Blood Pressure Mean 120 Blood Pressure Source Monitor Blood Pressure Position Semi-Fowlers Blood Pressure Location Left Arm Physical Exam Const alert, no apparent distress and well nourished Constitutional Narrative: The patient is morbidly obese. His BMI is 63.5. The patient is alert and interactive, though appears somewhat cognitively impaired. General Appearance: cooperative, comfortable and well developed Orientation / Consciousness: awake Exam Limitations: no limitations HEENT normocephalic and head/scalp atraumatic Head and Scalp: normal to inspection, normocephalic and atraumatic Face and Sinus: normal facial exam Nose: external nose normal External Ear: external ears normal Eyes EOMs intact bilaterally General Eye: normal appearance of both eyes Neck full ROM General: normal visual inspection Resp normal respiratory effort, normal air movement, no retractions and no use of accessory muscles Effort and Inspection: able to speak in complete sentences Extremity no calf tenderness General Extremity: Negative for clubbing or cyanosis Skin Wound Narrative: Severe swelling, edema, and lymphedema are noted in the patient's lower extremities bilaterally. The venous ulceration on the patient's left lateral calf is now healed. There has been a significant amount of epithelialization. A large amount of sloughing epidermis is present. Hyperpigmentation and lipodermatosclerosis are noted in the left gaiter area. No large varicosities are noted. No drainage is noted. There is no sign of infection or cellulitis. Neuro CN's II-XII intact bilaterally, moves all extremities and no focal motor deficits Sensorium / Orientation: awake and alert Psych Appearance: grossly normal and appropriate Attitude: calm Activity / Motor Behavior: appropriate eye contact Speech: normal speech Mood & Affect: euthymic mood Attention / Concentration: attention grossly intact Debridement Note Debridement Note Debridement Free Text: The left lower extremity venous ulceration is healed. A sterile curette was used to elevate and remove the sloughing epithelium, under which the ulceration is noted to be healed. No debridement was completed: No debridement was completed today Post-Debridement Measurements and Additional Note: Post-Debridement Measurements/Treatment - Nurse 1 - General Ulcer Assessment Start: 06/16/25 13:04 Freq: Status: Active Protocol: WC.LOWMARTY Activity Type Activity Date Activity User E-sign Co-sign Detail Recorded Client Recorded Date Recorded By Document 06/16/25 13:04 [facility] [id number] 06/16/25 13:15 [facility] Document 06/19/25 09:34 RB [id number] 06/19/25 09:35 RB 06/16/25 06/19/25 13:04 09:34 - Today's Visit Information Type of service Follow-up Visit Nurse-only (Physician/FAMILY COACH Visit ) Arrival Mode Ambulatory Ambulatory Arrival Mode (Other) mother Transfer Assistance None None Patient Identification Verified (Name & Yes Yes ) Patient Requires Transmission-Based No No Precautions Vital Signs Temperature (97.8 F-99.1 F) 97.9 F 97.5 F L Temperature Source Temporal Temporal Pulse Rate (60-100) 96 108 H Pulse Location Monitor Monitor Respiratory Rate (12-18) 16 18 Respiratory rate source Observation Observation Oxygen Delivery Method Room Air Blood Pressure (90/60-120/80) 157/100 H 156/102 H Blood Pressure Mean 119 120 Source Monitor Monitor Position Sitting Semi-Fowlers Blood Pressure Location Right Arm Left Arm History Since Last Visit- (Skip if this is Patient's initial visit) Have you changed medications since your No No last visit? Any new allergies or adverse reactions No No Had a fall/change in ADL's that may No No increase risk of falls Signs or symptoms of abuse and/or No No neglect since last visit Have you been in the hospital since your No No last visit? Has dressing in place as prescribed Yes Yes Has compression in place as prescribed Yes Yes Has offloadiing in place as prescribed N/A N/A Experienced any changes in pain level or No No management Left Footwear Regular Shoe Regular Shoe Right Footwear Regular Shoe Regular Shoe Pain Scale: 0-10 Numeric Is Patient Pain Free? Yes Yes - Nurse 1 - General Ulcer Measurement Start: 06/16/25 13:04 Freq: Status: Active Protocol: Activity Type Activity Date Activity User E-sign Co-sign Detail Recorded Client Recorded Date Recorded By Document 06/16/25 13:04 [facility] [id number] 06/16/25 13:15 [facility] 06/16/25 13:04 Wound Center Nurse 1 #1: LLE/ AMOS CLUSTER -Combined with other wound No -Current Size (cm) - Length 0.1 -Current Size (cm) - Width 0.1 -Current Size (cm) - Depth 0.1 -Total Square Cm 0.01 -Date of Last Picture (Recall this 06/16/25 field) -Epithelialization Large 67-100% -Tunneling No -Undermining/Tunneling No -Circular Undermining No -Texture (Francesca-wound Skin Appearance) Assessed, Scarring -Moisture (Francesca-wound Skin Appearance) Assessed,Dry/ Scaly -Color (Francesca-wound Skin Appearance) Assessed -Temperature (Francesca-wound Skin No Abnormality Appearance) (Pt Warm) -Tenderness on Palpation (Francesca-wound No Skin Appearance) -Ulcer Cleansing Soap and Water -Foul Odor after Cleansing No -Anesthetic Used 4% Lidocaine Solution Lower Limb Edema Present Yes Right Calf (cm) 56.4 Right Ankle (cm) 35.5 Left Calf (cm) 55.2 Left Ankle (cm) 31.6 WC - Nurse 2 - General Ulcer CM Notes Start: 06/16/25 13:04 Freq: Status: Active Protocol: Activity Type Activity Date Activity User E-sign Co-sign Detail Recorded Client Recorded Date Recorded By Document 06/16/25 13:28 [id number] 06/16/25 13:33 06/16/25 13:28 Wound Center Nurse 2 #1: LLE/ AMOS CLUSTER -Correct Patient Yes -Correct Side, Site, Position No -Correct Procedure No -Procedure Performed No -Post Debridement (cm) - Length 0 -Post Debridement (cm) - Width 0 -Post Debridement (cm) - Depth 0 -Total Square (Post) (cm) 0 -Area of Debridement (cm) - Length 0 -Area of Debridement (cm) - Width 0 -Total Square (Area) (cm) 0 -Wound/Ulcer Outcome Healed- Epithelialized Pain Scale: 0-10 Numeric Is Patient Pain Free? Yes WC - Nurse 3 - General Ulcer D/C NN Start: 06/16/25 13:04 Freq: Status: Active Protocol: Activity Type Activity Date Activity User E-sign Co-sign Detail Recorded Client Recorded Date Recorded By Document 06/16/25 13:53 KW [id number] 06/16/25 13:53 KW Document 06/19/25 09:35 RB [id number] 06/19/25 09:38 RB 06/16/25 06/19/25 13:53 09:35 Wound Care Center Nurse 3 LLE -Lotion applied to leg before Yes compression wrap -Multi-Layered Wrap Application Multi-Layer Multi-Layer Comp - Left ($) Comp - Left ($) -Multi-Layer Compression Left (Qty 1 1 applied) RLE -Tubular Bandage Double Layer Double Layer -Size of Tubigrip Used Size F Size F -Size F ($) 2 2 Treatment Response Procedure Tolerated Well Pain Scale: 0-10 Numeric Is Patient Pain Free? Yes Yes WC - Visit Discharge Discharge Condition Stable Stable Ambulatory Status Ambulatory Ambulatory Transportation Private Auto Private Auto Accompanied by mother Medication Reconcilliation completed & No No provided to patient/care provider Clinical Summary of Care Provided Yes Yes Notes: Irais Antonoi LPN assisted with dressing change 3M Charges/Coding Visit Charges Office Visits / Consults: [id number] OV L3 Est 20min Assessment/Plan Assessment/Plan (1) Venous stasis ulcer: CODE(S): I83.009 - Varicose veins of unspecified lower extremity with ulcer of unspecified site; L97.909 - Non-pressure chronic ulcer of unspecified part of unspecified lower leg with unspecified severity QUALIFIERS: Venous stasis ulcer site: calf Varicose vein presence: without varicose veins Laterality: left Non-pressure ulcer stage: with fat layer exposed Qualified Code(s): I87.2 - Venous insufficiency (chronic) (peripheral); L97.222 - Non-pressure chronic ulcer of left calf with fat layer exposed (2) Venous stasis dermatitis of left lower extremity: CODE(S): I87.2 - Venous insufficiency (chronic) (peripheral) (3) Lymphedema: CODE(S): I89.0 - Lymphedema, not elsewhere classified (4) Bilateral leg edema: CODE(S): R60.0 - Localized edema (5) Localized swelling of both lower legs: CODE(S): R22.43 - Localized swelling, mass and lump, lower limb, bilateral (6) Lipodermatosclerosis of left lower extremity: CODE(S): M79.3 - Panniculitis, unspecified (7) Hyperpigmentation: CODE(S): L81.9 - Disorder of pigmentation, unspecified (8) Morbid obesity with BMI of 60.0-69.9, adult: CODE(S): E66.01 - Morbid (severe) obesity due to excess calories; Z68.44 - Body mass index [BMI] 60.0-69.9, adult (9) Mild mental slowing: CODE(S): F70 - Mild intellectual disabilities (10) Essential (primary) hypertension: CODE(S): I10 - Essential (primary) hypertension (11) GERD (gastroesophageal reflux disease): CODE(S): K21.9 - Gastro-esophageal reflux disease without esophagitis (12) Mild persistent asthma in adult without complication: CODE(S): J45.30 - Mild persistent asthma, uncomplicated (13) Hx of tonsillectomy: CODE(S): Z90.89 - Acquired absence of other organs PLAN: Plan This is a morbidly obese 29-year-old male with a long history of bilateral lower extremity swelling, edema, and lymphedema. He also has had recurrent episodes of venous stasis dermatitis and venous ulcerations in his left lower extremity. He presented with a recurrent venous stasis ulceration on his left lateral calf. He has been a previous patient at the [facility] approximately 2 years ago for similar symptoms and manifestations. His BMI is 63.5. He has made recent efforts to lose weight, and has lost over 70 pounds by dietary means. To assist the patient and his family in further weight loss efforts, a consultation is to be sought with the dietary service. The patient has been encouraged to lose additional weight. With respect to his presenting condition, conservative measures are to be continued relative to the chronic swelling and edema in his lower extremities. A lengthy discussion has been undertaken regarding leg elevation. Leg elevation is to be to heart level, as much as possible. The patient has been encouraged to continue sleeping on a flat surface at night. His legs are to be elevated to heart level, or higher, during daytime hours as well. Elevation has been encouraged as much as possible. Prolonged idle sitting has been discouraged. Activity/ambulation has been encouraged. We are to continue compression to the left lower extremity by means of a 3M 2 layer compression wrap, which will be changed twice weekly. A double layer Tubigrip to be continued to the right lower extremity, which will be donned on a daily basis. Relative to long-term management, the patient will be best served by efforts to lose weight, which have been initiated. He will also benefit from compression to the lower extremities by either graduated compression stockings or CircAid Velcro compression garments. He has indicated his preference for CircAid Velcro compression garments. His lower extremity dimensions have been documented, and are to be forwarded to his DME provider in an attempt to procure CircAid Velcro compression garments. The patient is to return in 1 week for reassessment. Total time: 26 minutes
[2025-06-23 13:42] VITALS: BP 150/91; PULSE 100; RESP 18; TEMP 36.8
--- NOTE | 2025-06-24 13:02 | PCM.WC.HP ---
History of Present Illness Date of Service: 06/23/25 Chief Complaint: Left lower extremity venous stasis ulceration with venous stasis dermatitis; Lymphedema History of Wound: This is a 29-year-old morbidly obese male who presented with a left lower extremity venous stasis ulceration and venous stasis dermatitis. The patient has previously been treated at the [facility] for similar symptoms and manifestations approximately 2 years prior to his current presentation. The patient is mildly cognitively impaired. The patient is morbidly obese, and his BMI is 63.5. He has been treated for recurrent episodes of cellulitis in his left lower extremity, and has recently received 2 courses of oral cephalexin. Bactroban ointment has been used topically. Exudative drainage has been present until recently. The patient is currently on Lasix, prescribed by his primary care physician. The patient suffers from chronic swelling, edema, and lymphedema in his lower extremities bilaterally. He claims to sleep on a flat mattress at night. However, he is not very active, spending large portions of each day sitting in idle fashion. He lives with his parents. Due to dietary modifications, the patient has recently lost over 70 pounds. The patient suffers from hypertension, gastroesophageal reflux disease, and asthma. He does not smoke tobacco products, but he does chew. The patient is not diabetic. [facility] Medical History Lymphedema Venous stasis ulcer Hyperpigmentation Lipodermatosclerosis of left lower extremity Venous stasis ulcer of ankle with fat layer exposed without varicose veins Venous stasis dermatitis of left lower extremity Localized swelling of both lower legs Morbid obesity with BMI of 60.0-69.9, adult Cellulitis of right leg Chronic ulcer of left leg, limited to breakdown of skin Irritable Obesity, morbid (more than 100 lbs over ideal weight or BMI > 40) Anxiety Mild mental slowing Essential (primary) hypertension Mild persistent asthma in adult without complication GERD (gastroesophageal reflux disease) Bilateral lower leg cellulitis Tachycardia with hypertension Bilateral leg edema Home Medications ?Medication ?Instructions ?Recorded ?Last Taken ?Type cetirizine 10 mg tablet 10 mg PO HS 06/15/23 Unknown History furosemide 40 mg tablet 40 mg PO DAILY 06/15/23 Unknown History lisinopril 30 mg tablet 30 mg PO DAILY 06/15/23 Unknown History albuterol sulfate 90 mcg/actuation 1 inh inhalation Q4-6H PRN 01/18/24 Unknown History aerosol inhaler (Ventolin HFA) shortness of breath or wheezing metoprolol succinate 25 mg 50 mg PO DAILY 01/18/24 Unknown History tablet,extended release 24 hr Allergy/AdvReac Type Severity Reaction Status Date / Time Animal Dander Allergy Intermediate Unknown Uncoded 01/18/24 12:08 Mold Spores Allergy Intermediate Unknown Uncoded 01/18/24 12:08 Family History Mother Asthma Grandfather Cancer Brother Diabetes Grandmother Diabetes Heart disease Hypertension Father Kidney disease Surgical History Hx of tonsillectomy Social History Smoking Status: Never smoker Smokeless tobacco user: chewing tobacco alcohol intake: never substance use type: does not use caffeine: Yes Type: tea Vital Signs Vital Signs Vital Signs: 06/23/25 13:42 Temperature 98.2 F Temperature Source Temporal Pulse Rate 100 Respiratory Rate 18 Blood Pressure 150/91 H Blood Pressure Mean 110 Blood Pressure Source Monitor Blood Pressure Position Semi-Fowlers Blood Pressure Location Left Arm Oxygen Delivery Method Room Air Weight Weight: 430 lb 0.01 oz Physical Exam Const alert, no apparent distress and well nourished Constitutional Narrative: The patient is morbidly obese. His BMI is 63.5. The patient is alert and interactive, though appears somewhat cognitively impaired. General Appearance: cooperative, comfortable and well developed Orientation / Consciousness: awake Exam Limitations: no limitations HEENT normocephalic and head/scalp atraumatic Head and Scalp: normal to inspection, normocephalic and atraumatic Face and Sinus: normal facial exam Nose: external nose normal External Ear: external ears normal Eyes EOMs intact bilaterally General Eye: normal appearance of both eyes Neck full ROM General: normal visual inspection Resp normal respiratory effort, normal air movement, no retractions and no use of accessory muscles Effort and Inspection: able to speak in complete sentences Extremity no calf tenderness General Extremity: Negative for clubbing or cyanosis Skin Wound Narrative: Moderate swelling, edema, and lymphedema are noted in the patient's lower extremities bilaterally. The venous ulceration on the patient's left lateral calf remains healed. Hyperpigmentation and lipodermatosclerosis are noted in the left gaiter area. No large varicosities are noted. No drainage is noted. There is no sign of infection or cellulitis. Neuro CN's II-XII intact bilaterally, moves all extremities and no focal motor deficits Sensorium / Orientation: awake and alert Psych Appearance: grossly normal and appropriate Attitude: calm Activity / Motor Behavior: appropriate eye contact Speech: normal speech Mood & Affect: euthymic mood Attention / Concentration: attention grossly intact Debridement Note Debridement Note No debridement was completed: No debridement was completed today (There are no open wounds or ulcerations.) Post-Debridement Measurements and Additional Note: Post-Debridement Measurements/Treatment - Nurse 1 - General Ulcer Assessment Start: 06/16/25 13:04 Freq: Status: Active Protocol: HEENA Activity Type Activity Date Activity User E-sign Co-sign Detail Recorded Client Recorded Date Recorded By Document 06/16/25 13:04 [facility] [id number] 06/16/25 13:15 [facility] Document 06/19/25 09:34 RB [id number] 06/19/25 09:35 RB Document 06/23/25 13:42 KW [id number] 06/23/25 13:43 KW 06/16/25 06/19/25 06/23/25 13:04 09:34 13:42 - Today's Visit Information Type of service Follow-up Visit Nurse-only Follow-up Visit (Physician/TAPPER BIT Visit (Physician/TAPPER BIT ) ) Arrival Mode Ambulatory Ambulatory Ambulatory Arrival Mode (Other) mother Transfer Assistance None None Accompanied by MOTHER Patient Identification Verified (Name & Yes Yes Yes ) Patient Requires Transmission-Based No No Precautions Vital Signs Temperature (97.8 F-99.1 F) 97.9 F 97.5 F L 98.2 F Temperature Source Temporal Temporal Temporal Pulse Rate (60-100) 96 108 H 100 Pulse Location Monitor Monitor Monitor Respiratory Rate (12-18) 16 18 18 Respiratory rate source Observation Observation Observation Oxygen Delivery Method Room Air Room Air Blood Pressure (90/60-120/80) 157/100 H 156/102 H 150/91 H Blood Pressure Mean 119 120 110 Source Monitor Monitor Monitor Position Sitting Semi-Fowlers Semi-Fowlers Blood Pressure Location Right Arm Left Arm Left Arm History Since Last Visit- (Skip if this is Patient's initial visit) Have you changed medications since your No No No last visit? Any new allergies or adverse reactions No No No Had a fall/change in ADL's that may No No No increase risk of falls Signs or symptoms of abuse and/or No No No neglect since last visit Have you been in the hospital since your No No No last visit? Has dressing in place as prescribed Yes Yes Yes Has compression in place as prescribed Yes Yes Yes Has offloadiing in place as prescribed N/A N/A N/A Experienced any changes in pain level or No No No management Left Footwear Regular Shoe Regular Shoe Regular Shoe Right Footwear Regular Shoe Regular Shoe Regular Shoe Pain Scale: 0-10 Numeric Is Patient Pain Free? Yes Yes Yes WC - Nurse 1 - General Ulcer Measurement Start: 06/16/25 13:04 Freq: Status: Active Protocol: Activity Type Activity Date Activity User E-sign Co-sign Detail Recorded Client Recorded Date Recorded By Document 06/16/25 13:04 [facility] [id number] 06/16/25 13:15 [facility] Document 06/23/25 13:42 [id number] 06/23/25 13:43 06/16/25 06/23/25 13:04 13:42 Wound Center Nurse 1 #1: LLE/ AMOS CLUSTER -Combined with other wound No -Current Size (cm) - Length 0.1 -Current Size (cm) - Width 0.1 -Current Size (cm) - Depth 0.1 -Total Square Cm 0.01 -Date of Last Picture (Recall this 06/16/25 field) -Epithelialization Large 67-100% -Tunneling No -Undermining/Tunneling No -Circular Undermining No -Texture (Francesca-wound Skin Appearance) Assessed, Scarring -Moisture (Francesca-wound Skin Appearance) Assessed,Dry/ Scaly -Color (Francesca-wound Skin Appearance) Assessed -Temperature (Francesca-wound Skin No Abnormality Appearance) (Pt Warm) -Tenderness on Palpation (Francesca-wound No Skin Appearance) -Ulcer Cleansing Soap and Water -Foul Odor after Cleansing No -Anesthetic Used 4% Lidocaine Solution Lower Limb Edema Present Yes Right Calf (cm) 56.4 57.4 Right Ankle (cm) 35.5 36.5 Left Calf (cm) 55.2 Point of measurement (cm from the medial 57.4 instep) Left Ankle (cm) 31.6 Point of Measurement (cm from the medial 34.1 instep) WC - Nurse 2 - General Ulcer CM Notes Start: 06/16/25 13:04 Freq: Status: Active Protocol: Activity Type Activity Date Activity User E-sign Co-sign Detail Recorded Client Recorded Date Recorded By Document 06/16/25 13:28 JF [id number] 06/16/25 13:33 JF Document 06/23/25 14:25 DS [id number] 06/23/25 14:26 DS 06/16/25 06/23/25 13:28 14:25 Wound Center Nurse 2 #1: LLE/ AMOS CLUSTER -Correct Patient Yes -Correct Side, Site, Position No -Correct Procedure No -Procedure Performed No -Post Debridement (cm) - Length 0 -Post Debridement (cm) - Width 0 -Post Debridement (cm) - Depth 0 -Total Square (Post) (cm) 0 -Area of Debridement (cm) - Length 0 -Area of Debridement (cm) - Width 0 -Total Square (Area) (cm) 0 -Wound/Ulcer Outcome Healed- Epithelialized Pain Scale: 0-10 Numeric Is Patient Pain Free? Yes Yes WC - Nurse 3 - General Ulcer D/C NN Start: 06/16/25 13:04 Freq: Status: Active Protocol: Activity Type Activity Date Activity User E-sign Co-sign Detail Recorded Client Recorded Date Recorded By Document 06/16/25 13:53 KW [id number] 06/16/25 13:53 KW Document 06/19/25 09:35 RB [id number] 06/19/25 09:38 RB Document 06/23/25 14:40 [facility] [id number] 06/23/25 14:41 BMF 06/16/25 06/19/25 06/23/25 13:53 09:35 14:40 Wound Care Center Nurse 3 LLE -Lotion applied to leg before Yes compression wrap -Multi-Layered Wrap Application Multi-Layer Multi-Layer Multi-Layer Comp - Left ($) Comp - Left ($) Comp - Left ($) -Multi-Layer Compression Left (Qty 1 1 1 applied) RLE -Tubular Bandage Double Layer Double Layer Double Layer -Size of Tubigrip Used Size F Size F Size F -Size F ($) 2 2 2 Treatment Response Procedure Tolerated Well Pain Scale: 0-10 Numeric Is Patient Pain Free? Yes Yes Yes WC - Visit Discharge Discharge Condition Stable Stable Stable Ambulatory Status Ambulatory Ambulatory Ambulatory Transportation Private Auto Private Auto Private Auto Accompanied by mother MOM Medication Reconcilliation completed & No No provided to patient/care provider Clinical Summary of Care Provided Yes Yes Notes: Irais Antonio LPN assisted with dressing change 3M Charges/Coding Visit Charges Office Visits / Consults: [id number] OV L3 Est 20min Assessment/Plan Assessment/Plan (1) Venous stasis ulcer: CODE(S): I83.009 - Varicose veins of unspecified lower extremity with ulcer of unspecified site; L97.909 - Non-pressure chronic ulcer of unspecified part of unspecified lower leg with unspecified severity QUALIFIERS: Venous stasis ulcer site: calf Varicose vein presence: without varicose veins Laterality: left Non-pressure ulcer stage: with fat layer exposed Qualified Code(s): I87.2 - Venous insufficiency (chronic) (peripheral); L97.222 - Non-pressure chronic ulcer of left calf with fat layer exposed (2) Venous stasis dermatitis of left lower extremity: CODE(S): I87.2 - Venous insufficiency (chronic) (peripheral) (3) Lymphedema: CODE(S): I89.0 - Lymphedema, not elsewhere classified (4) Bilateral leg edema: CODE(S): R60.0 - Localized edema (5) Localized swelling of both lower legs: CODE(S): R22.43 - Localized swelling, mass and lump, lower limb, bilateral (6) Lipodermatosclerosis of left lower extremity: CODE(S): M79.3 - Panniculitis, unspecified (7) Hyperpigmentation: CODE(S): L81.9 - Disorder of pigmentation, unspecified (8) Morbid obesity with BMI of 60.0-69.9, adult: CODE(S): E66.01 - Morbid (severe) obesity due to excess calories; Z68.44 - Body mass index [BMI] 60.0-69.9, adult (9) Mild mental slowing: CODE(S): F70 - Mild intellectual disabilities (10) Essential (primary) hypertension: CODE(S): I10 - Essential (primary) hypertension (11) GERD (gastroesophageal reflux disease): CODE(S): K21.9 - Gastro-esophageal reflux disease without esophagitis (12) Mild persistent asthma in adult without complication: CODE(S): J45.30 - Mild persistent asthma, uncomplicated (13) Hx of tonsillectomy: CODE(S): Z90.89 - Acquired absence of other organs PLAN: Plan This is a morbidly obese 29-year-old male with a long history of bilateral lower extremity swelling, edema, and lymphedema. He also has had recurrent episodes of venous stasis dermatitis and venous ulcerations in his left lower extremity. He presented with a recurrent venous stasis ulceration on his left lateral calf. He has been a previous patient at the [facility] approximately 2 years ago for similar symptoms and manifestations. His BMI is 63.5. He has made recent efforts to lose weight, and has lost over 70 pounds by dietary means. To assist the patient and his family in further weight loss efforts, arrangements were made for the patient and his mother to meet with a dietitian today, for the purpose of counseling regarding nutritional optimization and weight loss strategies. The patient has been encouraged to lose additional weight. With respect to his presenting condition, conservative measures are to be continued relative to the chronic swelling and edema in his lower extremities. A lengthy discussion has been undertaken regarding leg elevation. Leg elevation is to be to heart level or higher, as much as possible. The patient has been encouraged to continue sleeping on a flat surface at night. His legs are to be elevated during daytime hours as well. Elevation has been encouraged as much as possible. Prolonged idle sitting has been discouraged. Activity/ambulation has been encouraged. We are to continue compression to the left lower extremity by means of a 3M 2 layer compression wrap, which will be changed twice weekly. A double layer Tubigrip is to be continued to the right lower extremity, which will be donned on a daily basis. Relative to long-term management, the patient will be best served by efforts to lose weight, which have been initiated. He will also benefit from compression to the lower extremities. In this regard, the dimensions of the patient's lower extremities have been documented, and provided to his DME provider for [employer]id Velcro compression garments. We are attempting to obtain these garments for the patient for long-term use. The patient is to return in 1 week for reassessment, at which time it is hoped that he will have received his compression garments. Total time: 24 minutes
[2025-06-26 09:57] VITALS: BP 148/88; PULSE 98; RESP 18; TEMP 36.6
[2025-06-30 13:32] VITALS: BP 155/96; PULSE 106; RESP 18; TEMP 37.2
--- NOTE | 2025-07-02 19:36 | HP.PCM_ITS ---
History of Present Illness Date of Service: 06/30/25 Chief Complaint: Left lower extremity venous stasis ulceration with venous stasis dermatitis; Lymphedema History of Wound: This is a 29-year-old morbidly obese male who presented with a left lower extremity venous stasis ulceration and venous stasis dermatitis. The patient has previously been treated at the [facility] for similar symptoms and manifestations approximately 2 years prior to his current presentation. The patient is mildly cognitively impaired. The patient is morbidly obese, and his BMI is 63.5. He has been treated for recurrent episodes of cellulitis in his left lower extremity, and has recently r eceived 2 courses of oral cephalexin. Bactroban ointment has been used topically. Exudative drainage has been present until recently. The patient is currently on Lasix, prescribed by his primary care physician. The patient suffers from chronic swelling, edema, and lymphedema in his lower extremities bilaterally. He claims to sleep on a flat mattress at night. However, he is not very active, spending large portions of each day sitting in idle fashion. He lives with his parents. Due to dietary modifications, the patient has recently lost over 70 pounds. The patient suffers from hypertension, gastroesophageal reflux disease, and asthma. He does not smoke tobacco products, but he does chew. The patient is not diabetic. [facility] Medical History Lymphedema Venous stasis ulcer Hyperpigmentation Lipodermatosclerosis of left lower extremity Venous stasis ulcer of ankle with fat layer exposed without varicose veins Venous stasis dermatitis of left lower extremity Localized swelling of both lower legs Morbid obesity with BMI of 60.0-69.9, adult Cellulitis of right leg Chronic ulcer of left leg, limited to breakdown of skin Irritable Obesity, morbid (more than 100 lbs over ideal weight or BMI > 40) Anxiety Mild mental slowing Essential (primary) hypertension Mild persistent asthma in adult without complication GERD (gastroesophageal reflux disease) Bilateral lower leg cellulitis Tachycardia with hypertension Bilateral leg edema Home Medications ?Medication ?Instructions ?Recorded ?Last Taken ?Type cetirizine 10 mg tablet 10 mg PO HS 06/15/23 Unknown History furosemide 40 mg tablet 40 mg PO DAILY 06/15/23 Unkn own History lisinopril 30 mg tablet 30 mg PO DAILY 06/15/23 Unkn own History albuterol sulfate 90 mcg/actuation 1 inh inhalation Q4 -6H PRN 01/18/24 Unknown History aerosol inhaler (Ventolin HFA) shortness of breath or wheezing metoprolol succinate 25 mg 50 mg PO DAILY 01/18/24 Unk nown History tablet,extended release 24 hr Allergy/AdvReac Type Severity Reaction Status Date / Time Animal Dander Allergy Intermediate Unknown Uncoded 01/18/24 12:08 Mold Spores Allergy Intermediate Unknown Uncoded 01/18/24 12:08 Family History Mother Asthma Grandfather Cancer Brother Diabetes Grandmother Diabetes Heart disease Hypertension Father Kidney disease Surgical History Hx of tonsillectomy Social History Smoking Status: Never smoker Smokeless tobacco user: chewing tobacco alcohol intake: never substance use type: does not use caffeine: Yes Type: tea Vital Signs Vital Signs Vital Signs: Weight Weight: 430 lb 0.01 oz Physical Exam Const alert, no apparent distress and well nourished Constitutional Narrative: The patient is morbidly obese. His BMI is 63.5. The patient is alert and interactive, though appears somewhat cognitively impaired. General Appearance: cooperative, comfortable and well developed Orientation / Consciousness: awake Exam Limitations: no limitations HEENT normocephalic and head/scalp atraumatic Head and Scalp: normal to inspection, normocephalic and atraumatic Face and Sinus: normal facial exam Nose: external nose normal External Ear: external ears normal Eyes EOMs intact bilaterally General Eye: normal appearance of both eyes Neck full ROM General: normal visual inspection Resp normal respiratory effort, normal air movement, no retractions and no use of accessory muscles Effort and Inspection: able to speak in complete sentences Extremity no calf tenderness General Extremity: Negative for clubbing or cyanosis Skin Wound Narrative: Mild swelling, edema, and lymphedema are noted in the patient's lower extremities bilaterally. The venous ulceration on the patient's left lateral calf remains healed. Hyperpigmentation and lipodermatosclerosis are noted in the left gaiter area. No large varicosities are noted. No drainage is noted. There is no sign of infection or cellulitis. Neuro CN's II-XII intact bilaterally, moves all extremities and no focal motor deficits Sensorium / Orientation: awake and alert Psych Appearance: grossly normal and appropriate Attitude: calm Activity / Motor Behavior: appropriate eye contact Speech: normal speech Mood & Affect: euthymic mood Attention / Concentration: attention grossly intact Debridement Note Debridement Note No debridement was completed: No debridement was completed today (There are no open wounds or ulcerations.) Post-Debridement Measurements and Additional Note: Post-Debridement Measurements/Treatment - Nurse 1 - General Ulcer Assessment Start: 06/16/25 13:04 Freq: Status: Active Protocol: WILLT Activity Type Activity Date Activity User E-sign Co-sign Detail Recorded Client Recorded Date Recorded By Document 06/16/25 13:04 [facility] [id number] 06/16/25 13:15 BM Document 06/19/25 09:34 RB [id number] 06/19/25 09:35 RB Document 06/23/25 13:42 KW [id number] 06/23/25 13:43 KW Document 06/26/25 09:57 RB [id number] 06/26/25 09:59 RB Document 06/30/25 13:32 BMF [id number] 06/30/25 13:41 BMF 06/16/25 06/19/25 06/23/25 13:04 09:34 13:42 - Today's Visit Information Type of service Follow-up Visit Nurse-only Follow-up Visit (Physician/ROLL UP MACHINE OPERATOR Visit (Physician/ROLL UP MACHINE OPERATOR ) ) Arrival Mode Ambulatory Ambulatory Ambulatory Arrival Mode (Other) mother Transfer Assistance None None Accompanied by MOTHER Patient Identification Verified (Name & Yes Yes Yes ) Patient Requires Transmission-Based No No Precautions Vital Signs Temperature (97.8 F-99.1 F) 97.9 F 97.5 F L 98.2 F Temperature Source Temporal Temporal Temporal Pulse Rate (60-100) 96 108 H 100 Pulse Location Monitor Monitor Monitor Respiratory Rate (12-18) 16 18 18 Respiratory rate source Observation Observation Observation Oxygen Delivery Method Room Air Room Air Blood Pressure (90/60-120/80) 157/100 H 156/102 H 150/91 H Blood Pressure Mean 119 120 110 Source Monitor Monitor Monitor Position Sitting Semi-Fowlers Semi-Fowlers Blood Pressure Location Right Arm Left Arm Left Arm History Since Last Visit- (Skip if this is Patient's initial visit) Have you changed medications since your No No No last visit? Any new allergies or adverse reactions No No No Had a fall/change in ADL's that may No No No increase risk of falls Signs or symptoms of abuse and/or No No No neglect since last visit Have you been in the hospital since your No No No last visit? Has dressing in place as prescribed Yes Yes Yes Has compression in place as prescribed Yes Yes Yes Has offloadiing in place as prescribed N/A N/A N/A Experienced any changes in pain level or No No No management Left Footwear Regular Shoe Regular Shoe Regular Shoe Right Footwear Regular Shoe Regular Shoe Regular Shoe Pain Scale: 0-10 Numeric Is Patient Pain Free? Yes Yes Yes 06/26/25 06/30/25 09:57 13:32 - Today's Visit Information Type of service Nurse-only Follow-up Visit Visit (Physician/ROLL UP MACHINE OPERATOR ) Arrival Mode Ambulatory Ambulatory Arrival Mode (Other) Transfer Assistance None None Accompanied by mother mom Patient Identification Verified (Name & Yes Yes ) Patient Requires Transmission-Based No No Precautions Vital Signs Temperature (97.8 F-99.1 F) 98 F 98.9 F Temperature Source Temporal Temporal Pulse Rate (60-100) 98 106 H Pulse Location Monitor Monitor Respiratory Rate (12-18) 18 18 Respiratory rate source Observation Observation Oxygen Delivery Method Room Air Blood Pressure (90/60-120/80) 148/88 H 155/96 H Blood Pressure Mean 108 115 Source Monitor Monitor Position Sitting Sitting Blood Pressure Location Left Arm Right Forearm History Since Last Visit- (Skip if this is Patient's initial visit) Have you changed medications since your No No last visit? Any new allergies or adverse reactions No No Had a fall/change in ADL's that may No No increase risk of falls Signs or symptoms of abuse and/or No No neglect since last visit Have you been in the hospital since your No No last visit? Has dressing in place as prescribed Yes Has compression in place as prescribed Yes Yes Has offloadiing in place as prescribed N/A N/A Experienced any changes in pain level or No No management Left Footwear Regular Shoe Regular Shoe Right Footwear Regular Shoe Regular Shoe Pain Scale: 0-10 Numeric Is Patient Pain Free? Yes Yes - Nurse 1 - General Ulcer Measurement Start: 06/16/25 13:04 Freq: Status: Active Protocol: Activity Type Activity Date Activity User E-sign Co-sign Detail Recorded Client Recorded Date Recorded By Document 06/16/25 13:04 BMF [id number] 06/16/25 13:15 BMF Document 06/23/25 13:42 KW [id number] 06/23/25 13:43 KW Document 06/26/25 09:57 RB [id number] 06/26/25 09:59 RB Document 06/30/25 13:32 BMF [id number] 06/30/25 13:41 BMF 06/16/25 06/23/25 06/26/25 13:04 13:42 09:57 Wound Center Nurse 1 #1: LLE/ AMOS CLUSTER -Combined with other wound No -Current Size (cm) - Length 0.1 -Current Size (cm) - Width 0.1 -Current Size (cm) - Depth 0.1 -Total Square Cm 0.01 -Date of Last Picture (Recall this 06/16/25 field) -Epithelialization Large 67-100% -Tunneling No -Undermining/Tunneling No -Circular Undermining No -Texture (Francesca-wound Skin Appearance) Assessed, Scarring -Moisture (Francesca-wound Skin Appearance) Assessed,Dry/ Scaly -Color (Francesca-wound Skin Appearance) Assessed -Temperature (Francesca-wound Skin No Abnormality Appearance) (Pt Warm) -Tenderness on Palpation (Francesca-wound No Skin Appearance) -Ulcer Cleansing Soap and Water -Foul Odor after Cleansing No -Anesthetic Used 4% Lidocaine Solution Lower Limb Edema Present Yes Yes Right Calf (cm) 56.4 57.4 Right Ankle (cm) 35.5 36.5 Left Calf (cm) 55.2 56 Point of measurement (cm from the medial 57.4 instep) Left Ankle (cm) 31.6 31.8 Point of Measurement (cm from the medial 34.1 instep) 06/30/25 13:32 Wound Center Nurse 1 #1: LLE/ AMOS CLUSTER -Combined with other wound -Current Size (cm) - Length -Current Size (cm) - Width -Current Size (cm) - Depth -Total Square Cm -Date of Last Picture (Recall this field) -Epithelialization -Tunneling -Undermining/Tunneling -Circular Undermining -Texture (Francesca-wound Skin Appearance) -Moisture (Francesca-wound Skin Appearance) -Color (Francesca-wound Skin Appearance) -Temperature (Francesca-wound Skin Appearance) -Tenderness on Palpation (Francesca-wound Skin Appearance) -Ulcer Cleansing -Foul Odor after Cleansing -Anesthetic Used Lower Limb Edema Present Yes Right Calf (cm) Right Ankle (cm) Left Calf (cm) 55.6 Point of measurement (cm from the medial instep) Left Ankle (cm) 31.9 Point of Measurement (cm from the medial instep) WC - Nurse 2 - General Ulcer CM Notes Start: 06/16/25 13:04 Freq: Status: Active Protocol: Activity Type Activity Date Activity User E-sign Co-sign Detail Recorded Client Recorded Date Recorded By Document 06/16/25 13:28 JF [id number] 06/16/25 13:33 JF Document 06/23/25 14:25 DS [id number] 06/23/25 14:26 DS Document 06/30/25 13:55 DS [id number] 06/30/25 13:55 DS 06/16/25 06/23/25 06/30/25 13:28 14:25 13:55 Wound Center Nurse 2 #1: LLE/ AMOS CLUSTER -Correct Patient Yes -Correct Side, Site, Position No -Correct Procedure No -Procedure Performed No -Post Debridement (cm) - Length 0 -Post Debridement (cm) - Width 0 -Post Debridement (cm) - Depth 0 -Total Square (Post) (cm) 0 -Area of Debridement (cm) - Length 0 -Area of Debridement (cm) - Width 0 -Total Square (Area) (cm) 0 -Wound/Ulcer Outcome Healed- Epithelialized Pain Scale: 0-10 Numeric Is Patient Pain Free? Yes Yes Yes - Nurse 3 - General Ulcer D/C NN Start: 06/16/25 13:04 Freq: Status: Active Protocol: Activity Type Activity Date Activity User E-sign Co-sign Detail Recorded Client Recorded Date Recorded By Document 06/16/25 13:53 KW [id number] 06/16/25 13:53 KW Document 06/19/25 09:35 RB [id number] 06/19/25 09:38 RB Document 06/23/25 14:40 BMF [id number] 06/23/25 14:41 BMF Document 06/26/25 09:57 RB [id number] 06/26/25 09:59 RB Document 06/30/25 14:10 [facility] [id number] 06/30/25 14:11 [facility] 06/16/25 06/19/25 06/23/25 13:53 09:35 14:40 Wound Care Center Nurse 3 LLE -Lotion applied to leg before Yes compression wrap -Multi-Layered Wrap Application Multi-Layer Multi-Layer Multi-Layer Comp - Left ($) Comp - Left ($) Comp - Left ($) -Unna- Left (Qty applied) -Multi-Layer Compression Left (Qty 1 1 1 applied) RLE -Tubular Bandage Double Layer Double Layer Double Layer -Size of Tubigrip Used Size F Size F Size F -Size F ($) 2 2 2 Treatment Response Procedure Tolerated Well Pain Scale: 0-10 Numeric Is Patient Pain Free? Yes Yes Yes WC - Visit Discharge Discharge Condition Stable Stable Stable Ambulatory Status Ambulatory Ambulatory Ambulatory Transportation Private Auto Private Auto Private Auto Accompanied by mother MOM Medication Reconcilliation completed & No No provided to patient/care provider Clinical Summary of Care Provided Yes Yes Notes: Irais Antonio LPN assisted with dressing change 06/26/25 06/30/25 09:57 14:10 Wound Care Center Nurse 3 LLE -Lotion applied to leg before compression wrap -Multi-Layered Wrap Application Unna Boot - Multi-Layer Left Comp - Left ($) -Unna- Left (Qty applied) 1 -Multi-Layer Compression Left (Qty 1 applied) RLE -Tubular Bandage Double Layer Double Layer -Size of Tubigrip Used Size F Size F -Size F ($) 2 2 Treatment Response Procedure Procedure Tolerated Well Tolerated Well Pain Scale: 0-10 Numeric Is Patient Pain Free? Yes Yes WC - Visit Discharge Discharge Condition Stable Stable Ambulatory Status Ambulatory Ambulatory Transportation Private Auto Private Auto Accompanied by mother mom Medication Reconcilliation completed & No provided to patient/care provider Clinical Summary of Care Provided Yes Notes: Charges/Coding Visit Charges Office Visits / Consults: 60090 OV L3 Est 20min Assessment/Plan Assessment/Plan (1) Venous stasis ulcer: CODE(S): I83.009 - Varicose veins of unspecified lower extremity with ulcer of unspecified site; L97.909 - Non-pressure chronic ulcer of unspecified part of unspecified lower leg with unspecified severity QUALIFIERS: Venous stasis ulcer site: calf Varicose vein presence: without varicose veins Laterality: left Non-pressure ulcer stage: with fat layer exposed Qualified Code(s): I87.2 - Venous insufficiency (chronic) (peripheral); L97.222 - Non-pressure chronic ulcer of left calf with fat layer exposed (2) Venous stasis dermatitis of left lower extremity: CODE(S): I87.2 - Venous insufficiency (chronic) (peripheral) (3) Lymphedema: CODE(S): I89.0 - Lymphedema, not elsewhere classified (4) Bilateral leg edema: CODE(S): R60.0 - Localized edema (5) Localized swelling of both lower legs: CODE(S): R22.43 - Localized swelling, mass and lump, lower limb, bilateral (6) Lipodermatosclerosis of left lower extremity: CODE(S): M79.3 - Panniculitis, unspecified (7) Hyperpigmentation: CODE(S): L81.9 - Disorder of pigmentation, unspecified (8) Morbid obesity with BMI of 60.0-69.9, adult: CODE(S): E66.01 - Morbid (severe) obesity due to excess calories; Z68.44 - Body mass index [BMI] 60.0-69.9, adult (9) Mild mental slowing: CODE(S): F70 - Mild intellectual disabilities (10) Essential (primary) hypertension: CODE(S): I10 - Essential (primary) hypertension (11) GERD (gastroesophageal reflux disease): CODE(S): K21.9 - Gastro-esophageal reflux disease without esophagitis (12) Mild persistent asthma in adult without complication: CODE(S): J45.30 - Mild persistent asthma, uncomplicated (13) Hx of tonsillectomy: CODE(S): Z90.89 - Acquired absence of other organs PLAN: Plan This is a morbidly obese 29-year-old male with a long history of bilateral lower extremity swelling, edema, and lymphedema. He also has had recurrent episodes of venous stasis dermatitis and venous ulcerations in his left lower extremity. He presented with a recurrent venous stasis ulceration on his left lateral calf. He has been a previous patient at the [facility] approximately 2 years ago for similar symptoms and manifestations. His BMI is 63.5. He has made recent efforts to lose weight, and has lost over 70 pounds by dietary means. He continues in his weight loss efforts. To assist the patient and his family in further weight loss efforts, arrangements were made for the patient and his mother to meet with a dietitian recently, for the purpose of counseling regarding nutritional optimization and weight loss strategies. The patient has been encouraged to lose additional weight. With respect to his presenting condition, conservative measures are to be continued relative to the chronic swelling and edema in his lower extremities. A lengthy discussion has been undertaken regarding leg elevation. Leg elevation is to be to heart level or higher, as much as possible. The patient has been encouraged to continue sleeping on a flat surface at night. His legs are to be elevated during daytime hours as well. Elevation has been encouraged as much as possible. Prolonged idle sitting has been discouraged. Activity/ambulation has been encouraged. We are to continue compression to the left lower extremity by means of a 3M 2 layer compression wrap, which will be changed twice weekly. A double layer Tubigrip is to be continued to the right lower extremity, which will be donned on a daily basis. Relative to long-term management, the patient will be best served by efforts to lose weight, which have been initiated. He will also benefit from compression to the lower extremities. In this regard, the dimensions of the patient's lower extremities have been documented, and provided to his DME provider for CircAid Velcro compression garments. We are attempting to obtain these garments for the patient for long-term use. It is anticipated that the patient will receive the CircAid compression garments soon. The patient is to be scheduled for follow-up in 2 weeks, at which time it is anticipated that the compression garments will have been received. If received sooner, the patient will return to assure that he and his family have been properly instructed in the daily application of the CircAid Velcro compression garments. Once that has been achieved, the patient will be discharged, for follow-up on an as needed basis. Total time: 22 minutes
[2025-07-03 09:16] VITALS: BP 145/87; PULSE 99; RESP 18; TEMP 36.6
[2025-07-07 13:49] VITALS: BP 150/91; PULSE 115; RESP 20; TEMP 36.7
--- NOTE | 2025-07-14 13:41 | WC ---
pts mom called in to cancel appointment. informed Mother that since John had brought his circaides in last week and was shown how to wear them that the pt can be d/c from the WC per Dr. Mustafa.
== END 2025-07-14 15:07 | disposition home or self-care (01) ==
LOC: WC 12:30
PROVIDERS: PCP Nurse Practitioner Family; Referring Provider Nurse Practitioner Family; Visit Provider Surgery
DX: I83.209 Varicose veins of unspecified lower extremity with both ulcer of unspecified site and inflammation (principal); L97.222 Non-pressure chronic ulcer of left calf with fat layer exposed; E66.01 Morbid (severe) obesity due to excess calories; Z68.44 Body mass index [BMI] 60.0-69.9, adult; Z82.49 Family history of ischemic heart disease and other diseases of the circulatory system; Z79.899 Other long term (current) drug therapy; J45.30 Mild persistent asthma, uncomplicated; I89.0 Lymphedema, not elsewhere classified; Z63.4 Disappearance and death of family member; F70 Mild intellectual disabilities; I10 Essential (primary) hypertension; R60.0 Localized edema; K21.9 Gastro-esophageal reflux disease without esophagitis; M79.3 Panniculitis, unspecified; L81.9 Disorder of pigmentation, unspecified; Z90.89 Acquired absence of other organs; F17.220 Nicotine dependence, chewing tobacco, uncomplicated
CPT/HCPCS: 29580; 29581; 97802; 99213; G0463